=== PATIENT | male | born 1955 | race Caucasian/White ===

== ENCOUNTER 2017-04-11 14:15 | Emergency (ER) | payer BC ==
[2017-04-11 14:35] VITALS: BP 144/88
[2017-04-11] MEDS ORDERED: Silver Sulfadiazine 1% Crm 50 GM Tube TOP ONE ×2 (14:43→14:44)
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
== END 2017-04-11 15:00 | disposition home or self-care (01) ==
LOC: KA.ED 14:15
DX: T20.66XA Corrosion of second degree of forehead and cheek, initial encounter (principal); T23.611A Corrosion of second degree of right thumb (nail), initial encounter; T65.891A Toxic effect of other specified substances, accidental (unintentional), initial encounter
CPT/HCPCS: 16020; 99283; A9270

== ENCOUNTER 2019-03-31 03:05 | Emergency (ER) | payer BC ==
--- NOTE | 2019-03-31 03:53 | EDM.PDOC ---
ED HPI GENERAL MEDICAL PROBLEM - General Chief Complaint: Flank Pain Stated Complaint: left flank pain Time Seen by Provider: 03/31/19 03:39 Source of Information: Reports: Patient, Significant Other History Limitations: Reports: No Limitations - History of Present Illness INITIAL COMMENTS - FREE TEXT/NARRATIVE: Patient presents with left flank pain that started almost 2 hours ago when he got up to use the bathroom. He passed urine and stool with no difficulty or anything unusual. The pain was intense and he rated it 10/10 but it waxes and wanes somewhat. He has never had this before and no history of kidney disease or stones. Soon after arriving in ER pain had dropped to 7. 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 Left Flank Pain Score (Numeric/FACES): 6 - Related Data Allergies Allergy/AdvReac Type Severity Reaction Status Date / Time No Known Drug Allergies Allergy Other Verified 03/31/19 03:24 Home Meds: Home Meds Lisinopril 10 mg PO BEDTIME 04/11/17 [History] Acetaminophen 500 mg PO Q4H PRN 03/31/19 [History] Rosuvastatin [Crestor] 5 mg PO DAILY 03/31/19 [History] Past Medical History - Past Health History Medical/Surgical History: Denies Medical/Surgical History Cardiovascular History: Reports: High Cholesterol, Hypertension Social & Family History - Tobacco Use Smoking Status *Q: Never Smoker ED ROS GENERAL - Review of Systems Review Of Systems: See Below Constitutional: Denies: Fever, Chills, Malaise, Weakness HEENT: Reports: No Symptoms Respiratory: Reports: No Symptoms Cardiovascular: Reports: No Symptoms Endocrine: Reports: No Symptoms GI/Abdominal: Reports: Abdominal Pain (LUQ where the pain radiates around from the flank.), Nausea (felt a little with the pain.). Denies: Black Stool, Bloody Stool, Constipation, Diarrhea, Vomiting : Reports: Flank Pain. Denies: Discharge, Dysuria, Frequency, Hematuria, Urgency Musculoskeletal: Reports: No Symptoms Skin: Reports: No Symptoms Neurological: Reports: No Symptoms Psychiatric: Reports: No Symptoms ED EXAM, RENAL/ - Physical Exam Exam: See Below Exam Limited By: No Limitations General Appearance: Alert, WD/WN, No Apparent Distress Eye Exam: Bilateral Eye: EOMI, Normal Inspection, PERRL Ears: Normal External Exam, Hearing Grossly Normal Nose: Normal Inspection, No Blood Throat/Mouth: Normal Inspection, Normal Lips, Normal Voice, No Airway Compromise Head: Atraumatic, Normocephalic Neck: Normal Inspection, Full Range of Motion Respiratory/Chest: No Respiratory Distress, Lungs Clear, Normal Breath Sounds, No Accessory Muscle Use Cardiovascular: Regular Rate, Rhythm, No Murmur GI/Abdominal: Normal Bowel Sounds, Soft, Non-Tender, No Organomegaly, No Distention, No Abnormal Bruit Back Exam: Normal Inspection, Full Range of Motion. No: CVA Tenderness (L) ( not reproducible with palpation), CVA Tenderness (R) Extremities: Normal Inspection, Normal Range of Motion Neurological: Alert, Oriented, Normal Cognition, No Motor/Sensory Deficits Psychiatric: Normal Affect, Normal Mood Skin Exam: Warm, Dry, Intact, Normal Color, No Rash Course - Vital Signs Last Recorded V/S: Last Vital Signs Temp 97.1 F 03/31/19 03:10 Pulse 56 L 03/31/19 04:40 Resp 18 03/31/19 04:40 BP 120/85 03/31/19 04:40 Pulse Ox 93 L 03/31/19 04:40 - Orders/Labs/Meds Orders: Active Orders 24 hr Category Date Time Status Abdomen Pelvis w Cont [CT] Stat Exams 03/31/19 04:15 Ordered Sodium Chloride 0.9% [Normal Saline] 50 ml Med 03/31/19 04:30 Active IV ASDIRECTED Medication Orders Sodium Chloride (Normal Saline) 50 mls @ 200 mls/hr IV ASDIRECTED CASSANDRA Last Admin: 03/31/19 04:49 Dose: 200 mls/hr Labs: Laboratory Tests 03/31/19 03/31/19 03/31/19 Range/Units 03:32 03:40 03:40 WBC 5.52 (5.00-10.00) 10^3/uL RBC 4.63 (4.50-6.00) 10^6/uL Hgb 14.4 (13.0-17.0) g/dL Hct 41.5 (40.0-52.0) % MCV 89.6 (82.0-92.0) fL MCH 31.1 H (27.0-31.0) pg MCHC 34.7 (32.0-36.0) g/dL RDW 13.1 (11.5-14.5) % Plt Count 189 (150-400) 10^3/uL MPV 9.9 (7.4-10.4) fL Immature Gran % (Auto) 0.0 (0.0-5.0) % Neut % (Auto) 49.4 L (50.0-70.0) % Lymph % (Auto) 36.2 (20.0-40.0) % [place] % (Auto) 7.2 (2.0-8.0) % Eos % (Auto) 6.7 H (1.0-3.0) % Baso % (Auto) 0.5 (0.0-1.0) % Immature Gran # (Auto) 0.00 (0.00-0.50) 10^3/uL Neut # (Auto) 2.72 (2.50-7.00) 10^3/uL Lymph # (Auto) 2.00 (1.00-4.00) 10^3/uL [place] # (Auto) 0.40 (0.10-0.80) 10^3/uL Eos # (Auto) 0.37 H (0.10-0.30) 10^3/uL Baso # (Auto) 0.03 (0.00-0.10) 10^3/uL Sodium 143 (136-145) mmol/L Potassium 4.2 (3.3-5.3) mmol/L Chloride 106 (98-115) mmol/L Carbon Dioxide 27.8 (21.0-32.0) mmol/L Anion Gap 13.4 (5-15) mmol/L BUN 25 (6-25) mg/dL Creatinine 1.37 H (0.51-1.17) mg/dL Est Cr Clr Drug Dosing 66.40 mL/min Estimated GFR (MDRD) 52 mL/min Glucose 128 H (75 - 99) mg/dL Calcium 8.9 (8.7-10.3) mg/dL Specimen Type Urinvoid Urine Color Yellow (YELLOW) Urine Appearance Slightly cloudy H (CLEAR) Urine pH 5.5 (5.0-9.0) Ur Specific [place] 1.025 (1.005-1.030) Urine Protein Negative (NEGATIVE) mg/dL Urine Glucose (UA) Negative (NEGATIVE) mg/dL Urine Ketones Negative (NEGATIVE) mg/dL Urine Occult Blood Large H (NEGATIVE) Urine Nitrite Negative (NEGATIVE) Urine Bilirubin Negative (NEGATIVE) Urine Urobilinogen 0.2 (0.2-1.0) E.U./dL Ur Leukocyte Esterase Negative (NEGATIVE) Urine RBC >100 H (0-5) /HPF Urine WBC 0-5 (0-5) /HPF Ur Epithelial Cells Few /LPF Urine Bacteria Few (NONE TO FEW) /HPF Meds: Medications Generic Name Dose Route Start Last Admin Trade Name Freq PRN Reason Stop Dose Admin Sodium Chloride 50 mls @ 200 mls/hr 03/31/19 04:30 03/31/19 04:49 Normal Saline IV 200 mls/hr ASDIRECTED CASSANDRA Administration Discontinued Medications Generic Name Dose Route Start Last Admin Trade Name Freq PRN Reason Stop Dose Admin Hydromorphone HCl 1 mg 03/31/19 04:21 03/31/19 04:35 Dilaudid IVPUSH 03/31/19 04:22 1 mg ONETIME ONE Administration Sodium Chloride 1,000 mls @ 999 mls/hr 03/31/19 03:47 03/31/19 04:05 Normal Saline IV 03/31/19 04:47 999 mls/hr .BOLUS ONE Administration Iopamidol 100 ml 03/31/19 04:19 03/31/19 04:49 Isovue-370 (76%) IV 03/31/19 04:20 75 ml ONETIME ONE Administration Ketorolac Tromethamine 30 mg 03/31/19 03:46 03/31/19 04:05 Toradol IVPUSH 03/31/19 03:47 30 mg ONETIME ONE Administration Ondansetron HCl 4 mg 03/31/19 04:22 03/31/19 04:30 Zofran IVPUSH 03/31/19 04:23 4 mg ONETIME ONE Administration - Re-Assessments/Exams Free Text/Narrative Re-Assessment/Exam: 03/31/19 03:51 Pain is about 5 now he says. Labs are running and will get CT. 03/31/19 05:35 CT shows a 4.5 mm left ureteral stone and mild left hydronephrosis. Patient is completely pain-free the last 30 minutes since getting Toradol and Dilaudid. We discussed findings, expectations and treatment recommendations. Patient discharged to home in stable condition. Departure - Departure Time of Disposition: 05:31 Disposition: Home, Self-Care 01 Condition: Good Clinical Impression: Left ureteral calculus - Discharge Information Instructions: Kidney Stones, [id number] Forms: ED Department Discharge Additional Instructions: 1. Drink 8 cups of water daily. 2. Take Ibuprofen 600 mg three times a day as needed for pain. 3. You can use the Hydrocodone as directed if needed for additional pain control. 4. Strain your urine each urination until you collect the stone and take it to your PCP clinic for lab analysis. 5. Follow up with your PCP in 2 days if not resolved. - My Orders Last 24 Hours: My Active Orders 03/31/19 04:15 Abdomen Pelvis w Cont [CT] Stat 03/31/19 04:30 Sodium Chloride 0.9% [Normal Saline] 50 ml IV ASDIRECTED - Assessment/Plan Last 24 Hours: My Active Orders 03/31/19 04:15 Abdomen Pelvis w Cont [CT] Stat 03/31/19 04:30 Sodium Chloride 0.9% [Normal Saline] 50 ml IV ASDIRECTED
[2019-03-31] MEDS: Ketorolac 30 MG/ML SDV IVPUSH ONE (04:05)
[2019-03-31] MEDS: Sodium Chloride 0.9% 1,000 ML IV ONE (04:05)
[2019-03-31 04:12] LABS: ANION GAP 13.4 mmol/L (5-15)
[2019-03-31] MEDS: Ondansetron 4 MG/2 ML SDV IVPUSH ONE (04:30)
[2019-03-31] MEDS: HYDROmorphone 1 MG/ML Syringe IVPUSH ONE (04:35)
[2019-03-31] MEDS: Sodium Chloride 0.9% 50 ML IV SCH (04:49)
[2019-03-31] MEDS: Iopamidol 755 Mg/ML 100 ML Bottle IV ONE (04:49)
[2019-03-31 04:54] VITALS: BP 120/85; PULSE 56
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
== END 2019-03-31 05:45 | disposition home or self-care (01) ==
LOC: KA.ED 03:05
DX: N13.2 Hydronephrosis with renal and ureteral calculous obstruction (principal); I10 Essential (primary) hypertension; Z79.899 Other long term (current) drug therapy
CPT/HCPCS: 36415; 74177; 80048; 81001; 85025; 96361; 96374; 96375; 99284-25; J1170; J1885; J2405; J7030; J7050; Q9967

== ENCOUNTER 2020-04-14 12:10 | Emergency (ER) | payer OTHER, MEDICARE, BC ==
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
[2020-04-14 12:43] VITALS: BP 144/95; PULSE 95
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
[2020-04-14] MEDS ORDERED: Ketorolac 60 MG/2 ML SDV IM ONE (13:21)
== END 2020-04-14 13:30 | disposition home or self-care (01) ==
LOC: KA.ED 12:10
DX: S46.912A Strain of unspecified muscle, fascia and tendon at shoulder and upper arm level, left arm, initial encounter (principal); S16.1XXA Strain of muscle, fascia and tendon at neck level, initial encounter; I10 Essential (primary) hypertension; E78.00 Pure hypercholesterolemia, unspecified; Z79.899 Other long term (current) drug therapy; V69.40XA Driver of heavy transport vehicle injured in collision with unspecified motor vehicles in traffic accident, initial encounter; Y92.410 Unspecified street and highway as the place of occurrence of the external cause
CPT/HCPCS: 72040; 73030-LT; 96372; 99283; 99283-25; J1885

== ENCOUNTER 2020-09-14 09:24 | Day surgery (SDC) | payer MEDICARE, BC ==
[2020-09-14] MEDS ORDERED: Sodium Chloride 0.9% 10 ML Syringe FLUSH PRN (09:30)
[2020-09-14] MEDS: Lactated Ringers 1,000 ML IV SCH (10:17)
[2020-09-14] MEDS ORDERED: Midazolam 1 MG/ML 2 ML SDV ONE (10:36)
[2020-09-14] MEDS ORDERED: Propofol 200 MG/20 ML SDV ONE (10:36)
--- NOTE | 2020-09-14 10:38 | PCM.PN ---
- General Info Date of Service: 09/14/20 - Review of Systems Systems Review Comment:: 64-year-old male here for screening colonoscopy. He relates normal bowel function and no family history of colon cancer. His last colonoscopy was about 10 years ago. Patient is medically stable to proceed today. His recent history and physical is reviewed and no significant changes are noted. I have discussed the proposed colonoscopy with the patient. He agrees to proceed accepting risks. - Patient Data Vitals - Most Recent: Last Vital Signs Temp 97 F 09/14/20 09:47 Pulse 86 09/14/20 09:47 Resp 16 09/14/20 09:47 BP 148/89 H 09/14/20 09:47 Pulse Ox 97 09/14/20 09:47 Weight - Most Recent: 88.451 kg Med Orders - Current: Current Medications Lactated Ringer's (Ringers, Lactated) 1,000 mls @ 50 mls/hr IV ASDIRECTED [facility] Last Admin: 09/14/20 10:17 Dose: 50 mls/hr Documented by: Sodium Chloride (Saline Flush) 10 ml FLUSH Q8HR PRN PRN Reason: keep vein open Sepsis Event Note - Focused Exam Vital Signs: Vital Signs Temp Pulse Resp BP Pulse Ox 09/14/20 09:47 97 F 86 16 148/89 H 97 - Problem List Review Problem List Initiated/Reviewed/Updated: Yes - My Orders Last 24 Hours: My Active Orders 09/14/20 07:23 Resuscitation Status Routine 09/14/20 Breakfast Nothing Per Oral Diet [DIET] 09/14/20 09:30 Peripheral IV Care [RC] . DIRECTED Lactated Ringers [Ringers, Lactated] 1,000 ml IV ASDIRECTED Sodium Chloride 0.9% [Saline Flush] 10 ml FLUSH Q8HR PRN Peripheral IV Insertion Adult [OM.PC] Routine 09/14/20 10:00 Patient to Empty Bladder [RC] ASDIRECTED 09/14/20 10:30 Verify Patient Consent Obtain [RC] ASDIRECTED - Assessment Assessment:: Colon cancer screening - Plan Plan:: Colonoscopy
--- NOTE | 2020-09-14 11:18 | PCM.OPNOTE ---
- General Post-Op/Procedure Note Date of Surgery/Procedure: 09/14/20 Operative Procedure(s): Colonoscopy with Polypectomy Findings: Multiple small polyps Extensive Left sided Diverticulosis Pre Op Diagnosis: Colon Cancer Screening Post-Op Diagnosis: Colon Polyps. Left Colon Diverticulosis Anesthesia Technique: MAC Primary Surgeon: Maurice Ragsdale Pathology: Colon Polyps EBL in mLs: 2 Complications: None Condition: Good
[2020-09-14 12:43] VITALS: BP 124/77; PULSE 58
--- NOTE | 2020-09-14 13:46 | OR ---
DATE OF SURGERY: 09/14/2020 SURGEON: Maurice Ragsdale MD PREOPERATIVE DIAGNOSIS: Colon cancer screening. POSTOPERATIVE DIAGNOSIS: Colon polyps, left colon diverticulosis. OPERATION PERFORMED: Colonoscopy with polypectomy. INDICATIONS FOR SURGERY: This 64-year-old male comes today for screening colonoscopy. He denies any recent changes in bowel pattern. FINDINGS: Polyps are noted in three locations today. These are sessile polyps ranging in size from 4-7 mm. There is a single polyp located in the cecum. There was a cluster of two polyps noted at the hepatic flexure and a single polyp noted in the distal transverse colon. The patient also has extensive diverticulosis of the left colon with multiple large diverticula. All of this does not appear to be acutely inflamed or otherwise complicated. The colon otherwise appears normal. PROCEDURE: The patient was taken to the operating room. He was given intravenous sedation and with him in the left lateral decubitus position, digital rectal exam was performed. No rectal masses were noted. The Olympus colonoscope was inserted into the rectum. Retroflexed examination of the rectal canal is performed. The scope was then carefully advanced under direct visualization through the entire length of the colon until the cecum is reached. Cecal acquisition is confirmed by noting the normal internal cecal anatomy including the appendiceal orifice and the ileocecal valve. The light was also noted to transilluminate the abdominal wall in the right lower quadrant. After examining the cecum, the scope was slowly withdrawn sequentially re-examining the colonic segments. As the above-described polyps were identified during withdrawal of the scope. They are each removed with cold biopsy forceps. All visualized polyps were completely removed in this manner. Examination is completed and with no sign of any complication. The scope was removed and the patient was taken from the operating room in satisfactory condition. ESTIMATED BLOOD LOSS: 2 mL. COMPLICATIONS: None. PROGNOSIS: Good. /[id number]/MODL
== END 2020-09-14 12:55 | disposition home or self-care (01) ==
LOC: KA.SDS 09:24
PROVIDERS: ATTEND Surgery
DX: Z12.11 Encounter for screening for malignant neoplasm of colon (principal); D12.0 Benign neoplasm of cecum; D12.3 Benign neoplasm of transverse colon; K57.30 Diverticulosis of large intestine without perforation or abscess without bleeding; G89.29 Other chronic pain; E78.5 Hyperlipidemia, unspecified; I10 Essential (primary) hypertension; Z79.899 Other long term (current) drug therapy; Z98.890 Other specified postprocedural states; Z87.891 Personal history of nicotine dependence
CPT/HCPCS: 00812; 88305; J2250; J2704; J7120

== ENCOUNTER 2023-10-23 10:01 | Day surgery (SDC) | payer MEDICARE ==
[~2023-10-23 10:01] MED LIST: Sodium Chloride 0.9% 10 ML Syringe FLUSH PRN
[2023-10-23] MEDS: Lactated Ringers 1,000 ML IV SCH (10:14)
[2023-10-23] MEDS ORDERED: Propofol 200 MG/20 ML SDV ONE (10:45)
[2023-10-23] MEDS ORDERED: Midazolam 1 MG/ML 2 ML SDV ONE (10:45)
[2023-10-23 15:23] VITALS: BP 124/76; PULSE 65
== END 2023-10-23 13:15 | disposition home or self-care (01) ==
LOC: KA.SDS 10:01
PROVIDERS: ATTEND Surgery
DX: Z12.11 Encounter for screening for malignant neoplasm of colon (principal); K57.30 Diverticulosis of large intestine without perforation or abscess without bleeding; I10 Essential (primary) hypertension; E78.5 Hyperlipidemia, unspecified; N40.0 Benign prostatic hyperplasia without lower urinary tract symptoms; Z86.010 Personal history of colon polyps; Z87.891 Personal history of nicotine dependence; Z79.899 Other long term (current) drug therapy
CPT/HCPCS: J2250; J2704; J3490; J7120